=== PATIENT | female | born 1955 | race Two or more races ===

== ENCOUNTER → 2017-12-04 | Outpatient (CLI) | payer MEDICAID ==
[~2017-12-04] MED LIST: ALBU18; ALBUTEROL SULF 2.5 MG/0.5ML(0.5%) NEB SOLN ONE; INSUPOW; LISI-206; METF-370
== END | disposition home or self-care (01) ==
LOC: RT 12-03 08:19
PROVIDERS: ATTEND Internal Medicine Pulmonary Disease
DX: J98.8 Other specified respiratory disorders (principal); E78.5 Hyperlipidemia, unspecified; I10 Essential (primary) hypertension; Z79.4 Long term (current) use of insulin
CPT/HCPCS: 94060; 94640